=== PATIENT | male | born 1995 | race Caucasian/White ===

== ENCOUNTER 2017-08-04 23:03 | Emergency (ER) | payer OTHER ==
[~2017-08-04] VITALS: Ht 188 cm; Wt 96.3 kg
[2017-08-04 23:05] VITALS: Ht 188 cm; Wt 96.3 kg
[2017-08-04] MEDS ORDERED: ONDANSETRON INJ 2 MG/ML 2 ML VIAL IV STA (23:22)
[2017-08-04 23:36] LABS: BASO % 0.7 %; BASO ABS # 0.06 K/uL (0-0.2); EOS % 2.6 %; EOS ABS # 0.21 K/uL (0-0.5); HEMATOCRIT 43.5 % (42-52); HEMOGLOBIN 14.9 g/dL (14.0-18.0); IG# 0.01 K/uL (0.00-0.02); LYMPH % 29.7 %; LYMPH ABS # 2.42 K/uL (1.2-3.4); MEAN CELL VOLUME 87.3 fL (80-100); MEAN CORPUSCULAR HEMOGLOBIN 29.9 pg (25-34); MEAN CORPUSCULAR HGB CONC 34.3 g/dl (32-36); MONO ABS # 0.73 K/uL (0.11-0.59); NEUT % 57.9 %; NEUT ABS # 4.72 K/uL (1.4-6.5); PLATELET COUNT 242 K/uL (130-400); RED CELL DISTRIBUTION WIDTH CV 13.6 % (11.5-14.5); RED CELL DISTRIBUTION WIDTH SD 43.6 fL (36.4-46.3); WHITE BLOOD COUNT 8.15 K/uL (4.8-10.8)
--- NOTE | 2017-08-04 23:41 | EMERGENCY ROOM VISIT NOTE ---
History Report prepared by Rob: Norma Palacio Under the Supervision of: Dr. Jill Goodman D.O. First contact with patient: 23:07 Chief Complaint: ABDOMINAL PAIN Stated Complaint: CRAMPS IN STOMACH, ANXIETY History of Present Illness The patient is a 22 year old male who presents to the Emergency Room with complaints of persistent abdominal pain that began earlier today. The patient describes his discomfort as a cramping sensation. He reports that at one point his hands began to cramp and he felt like he was losing control of his hands. The patient notes that drinking water has been helping relieve his symptoms. He states that he has not been eating or drinking much liquids since yesterday, noting that he consumed alcohol last night. The patient reports that he vomited yesterday after drinking alcohol and again today after drinking about 4L of water within an hour and a half. He denies having any blood in his vomit, diarrhea, or a history of anxiety or diabetes. Source of History: patient Onset: earlier today Position: abdomen Quality: other (abdominal pain) Timing: other (persistent) Modifying Factors (Relieving): drinking (water) Associated Symptoms: No diarrhea Note: Associated symptoms include: hands cramping. Patient denies blood in vomit. Review of Systems See HPI for pertinent positives & negatives. A total of 10 systems reviewed and were otherwise negative. Past Medical & Surgical None Family History Patient reports no known family medical history. No pertinent family history. Social History Smoking Status: Never Smoker Smokeless Tobacco Use: Unknown Alcohol Use: occasionally Drug Use: none Marital Status: single Housing Status: lives with roommate Occupation Status: student Current/Historical Medications No Active Prescriptions or Reported Meds Allergies Coded Allergies: No Known Allergies (Unverified , 08/04/17) Physical Exam Vital Signs Date Time Temp Pulse Resp B/P (MAP) Pulse Ox O2 Delivery O2 Flow Rate FiO2 08/05/17 03:27 58 18 137/73 98 08/05/17 02:06 66 18 141/72 97 08/05/17 01:07 67 16 131/71 100 Room Air 08/04/17 23:05 66 18 112/71 99 Room Air Physical Exam HEENT: Head - normocephalic and atraumatic Pupils are equal, round, and reactive to light. Extraocular eye muscles are intact, and sclera are anicteric. Nose - moist nasal mucosa without discharge. Mouth - moist buccal mucosa. Oropharynx is nonerythematous and there is no tonsillar exudate or edema noted. Neck: Supple; no JVD, nuchal rigidity, cervical lymphadenopathy. Heart: Regular rate and rhythm. There is a normal S1 and S2 with no murmurs, clicks, or gallops appreciated. Lungs: Clear to auscultation bilaterally with no wheezes, rales, or rhonchi. Abdomen: Soft, completely nontender, nondistended, with good bowel sounds. There are no palpable pulsatile masses or hepatosplenomegaly. There is no guarding, rigidity, or rebound noted. Extremities: No evidence of cyanosis, clubbing, or edema. There are easily palpable peripheral pulses. Skin: warm and dry with good turgor and no rashes. Medical Decision & Procedures Laboratory Results 08/04/17 23:25 Red Blood Count 4.98, Mean Corpuscular Volume 87.3, Mean Corpuscular Hemoglobin 29.9, Mean Corpuscular Hemoglobin Concent 34.3, Mean Platelet Volume 10.0, Neutrophils (%) (Auto) 57.9, Lymphocytes (%) (Auto) 29.7, Monocytes (%) (Auto) 9.0, Eosinophils (%) (Auto) 2.6, Basophils (%) (Auto) 0.7, Neutrophils # (Auto) 4.72, Lymphocytes # (Auto) 2.42, Monocytes # (Auto) 0.73, Eosinophils # (Auto) 0.21, Basophils # (Auto) 0.06 08/04/17 23:25 Test 08/04/17 23:25 08/04/17 23:50 White Blood Count 8.15 K/uL (4.8-10.8) Red Blood Count 4.98 M/uL (4.7-6.1) Hemoglobin 14.9 g/dL (14.0-18.0) Hematocrit 43.5 % (42-52) Mean Corpuscular Volume 87.3 fL (80-100) Mean Corpuscular Hemoglobin 29.9 pg (25-34) Mean Corpuscular Hemoglobin Concent 34.3 g/dl (32-36) Platelet Count 242 K/uL (130-400) Mean Platelet Volume 10.0 fL (7.4-10.4) Neutrophils (%) (Auto) 57.9 % Lymphocytes (%) (Auto) 29.7 % Monocytes (%) (Auto) 9.0 % Eosinophils (%) (Auto) 2.6 % Basophils (%) (Auto) 0.7 % Neutrophils # (Auto) 4.72 K/uL (1.4-6.5) Lymphocytes # (Auto) 2.42 K/uL (1.2-3.4) Monocytes # (Auto) 0.73 K/uL (0.11-0.59) Eosinophils # (Auto) 0.21 K/uL (0-0.5) Basophils # (Auto) 0.06 K/uL (0-0.2) RDW Standard Deviation 43.6 fL (36.4-46.3) RDW Coefficient of Variation 13.6 % (11.5-14.5) Immature Granulocyte % (Auto) 0.1 % Immature Granulocyte # (Auto) 0.01 K/uL (0.00-0.02) Anion Gap 10.0 mmol/L (3-11) Est Creatinine Clear Calc Drug Dose 143.4 ml/min Estimated GFR () 132.9 Estimated GFR (Non- 114.6 BUN/Creatinine Ratio 9.1 (10-20) Calcium Level 8.6 mg/dl (8.5-10.1) Magnesium Level 1.7 mg/dl (1.8-2.4) Total Bilirubin 0.7 mg/dl (0.2-1) Direct Bilirubin 0.2 mg/dl (0-0.2) Aspartate Amino Transf (AST/SGOT) 40 U/L (15-37) Alanine Aminotransferase (ALT/SGPT) 49 U/L (12-78) Alkaline Phosphatase 96 U/L (45-117) Total Protein 7.9 gm/dl (6.4-8.2) Albumin 4.6 gm/dl (3.4-5.0) Lipase 162 U/L (73-393) Urine Color YELLOW Urine Appearance CLEAR (CLEAR) Urine pH 7.5 (4.5-7.5) Urine Specific [place] 1.012 (1.000-1.030) Urine Protein NEG (NEG) Urine Glucose (UA) NEG (NEG) Urine Ketones NEG (NEG) Urine Occult Blood NEG (NEG) Urine Nitrite NEG (NEG) Urine Bilirubin NEG (NEG) Urine Urobilinogen NEG (NEG) Urine Leukocyte Esterase SMALL (NEG) Urine WBC (Auto) 1-5 /hpf (0-5) Urine RBC (Auto) 0-4 /hpf (0-4) Urine Hyaline Casts (Auto) 0 /lpf (0-5) Urine Epithelial Cells (Auto) 5-10 /lpf (0-5) Urine Bacteria (Auto) NEG (NEG) Laboratory results per my review. Medications Administered Medications (Trade) Dose Ordered Sig/Scarlet Route Start Time Stop Time Status Last Admin Dose Admin Ondansetron HCl (Zofran Inj) 4 mg NOW STAT IV 08/04/17 23:22 08/04/17 23:28 DC 08/04/17 23:32 4 MG Sodium Chloride 500 ml @ 999 mls/hr Q31M STAT IV 08/04/17 23:55 08/05/17 00:25 DC 08/05/17 00:03 999 MLS/HR Dicyclomine HCl (Bentyl Cap) 20 mg STK-MED ONCE .ROUTE 08/05/17 00:59 08/05/17 01:00 DC 08/05/17 01:01 20 MG Lorazepam (Ativan Inj) 2 mg STK-MED ONCE .ROUTE 08/05/17 01:23 08/05/17 01:25 DC 08/05/17 01:28 1 MG Procedure 2322: Ordered Zofran Inj 4mg IV. 2355: Ordered Sodium Chloride 500ml @ 999 mls.hr/Iv. 0056: Ordered Bentyl Tab 20mg PO. 0257: Ordered Ativan Inj 1mg IV. ED Course 2312: Past medical records reviewed. The patient was evaluated in room B5. A complete history and physical exam was performed. IV lock was established. Labs were drawn as above. 2322: Ordered Zofran Inj 4mg IV. 2355: Ordered Sodium Chloride 500ml @ 999 mls.hr/Iv. 0015: I reevaluated the patient, who states that he is feeling much better and that his abdominal pain is completely gone. He is able to drink water, Gatorade and eat crackers. 0056: The patient began to complain of worsening abdominal cramping. I ordered Bentyl Tab 20mg PO. 0101: I reevaluated the patient who is currently moaning, hyperventilating, and in pain. 0123: Ordered Ativan Inj 1mg. 0156: I reevaluated the patient and updated him on test findings. He is currently eating crackers. 0308: Upon reevaluation, the patient is feeling significantly better. I discussed findings and results with him. He verbalized agreement of the treatment plan. The patient was discharged home. Medical Decision The patient is a 22 year old male who presents to the ED with abdominal pain. Differential diagnosis includes water toxicity, electrolyte imbalance, dehydration, hangover, and viral illness. Laboratory results showed:urine had small leukocyte esterases, sodium of 132, potassium of 342, chloride of 96, normal renal function, glucose of 104, magnesium slightly low at 1.7, normal white count, stable H&H, LFT's normal except AST was 40, and lipase was normal. This is a 22-year-old male patient presents to the emergency department with cramping abdominal pain, nausea and vomiting. The patient describes having very little food intake over the past 48 hours. He did drink an excessive amount of alcohol yesterday and began vomiting today. The patient went on to drink approximately 4 L of water at home prior to coming to the emergency department. Unfortunately, he vomited that water up. The patient was given IV crystalloid therapy here along with some Zofran. He was finally able to drink water, Gatorade, and eat crackers. The patient may be suffering from gastritis secondary to consuming significant alcohol on an empty stomach. I have asked him to follow a very bland diet over the next couple of days Medication Reconcilliation Current Medication List: was personally reviewed by me Blood Pressure Screening Patient's blood pressure: Normal blood pressure Blood pressure disposition: Did not require urgent referral Impression Primary Impression: Vomiting Additional Impression: Abdominal cramping Scribe Attestation The scribe's documentation has been prepared under my direction and personally reviewed by me in its entirety. I confirm that the note above accurately reflects all work, treatment, procedures, and medical decision making performed by me. Departure Information Dispostion Home / Self-Care Prescriptions No Active Prescriptions or Reported Meds Referrals No Doctor, Assigned (PCP) Forms HOME CARE DOCUMENTATION FORM, IMPORTANT VISIT INFORMATION Patient Instructions My [facility] Additional Instructions Rest. Take a bland diet and gatorade for next 48 hours. Avoid consuming alcohol in high quantities take frequent small meals. If abdominal cramping continues, follow up at [facility] Problem Qualifiers Primary Impression: Vomiting Vomiting type: unspecified Vomiting Intractability: non-intractable Nausea presence: with nausea Qualified Codes: R11.2 - Nausea with vomiting, unspecified
[2017-08-04 23:54] LABS: CALCIUM 8.6 mg/dl (8.5-10.1); CREATININE 0.94 mg/dl (0.60-1.40); POTASSIUM 3.2 mmol/L (3.5-5.1)
[2017-08-04] MEDS ORDERED: SODIUM CHLORIDE 0.9% 500ML 500 ML IV STA (23:55)
[2017-08-05] MEDS ORDERED: DICYCLOMINE HCL 20 MG TAB PO STA (00:56)
[2017-08-05] MEDS ORDERED: DICYCLOMINE HCL 10 MG CAP ONE (00:59)
[2017-08-05] MEDS ORDERED: LORAZEPAM 2 MG/ML 1 ML VIAL ONE (01:23)
[2017-08-05] MEDS ORDERED: NURSING VERBAL MED ORDER ONE (01:35)
[2017-08-05 02:23] LABS: ALBUMIN 4.6 gm/dl (3.4-5.0); TOTAL PROTEIN 7.9 gm/dl (6.4-8.2)
[2017-08-05] MEDS ORDERED: LORAZEPAM 2 MG/ML 1 ML VIAL IV STA (02:57)
[2017-08-05 03:27] VITALS: BP 137/73; PULSE 58; O2SAT 98
== END 2017-08-05 03:28 | disposition home or self-care (01) ==
LOC: C.EDB 23:05
DX: R11.2 Nausea with vomiting, unspecified (principal); R10.9 Unspecified abdominal pain